=== PATIENT | male | born 1990 | race Caucasian/White ===

== ENCOUNTER 2025-05-18 04:59 | Emergency (ER) | payer SELFPAY ==
[~2025-05-18] VITALS: Ht 170.2 cm; Wt 72.6 kg
[2025-05-18] MEDS ORDERED: LORAZEPAM 2 MG/1 ML VIAL ONE (05:52)
[2025-05-18] MEDS: LORAZEPAM 2 MG/1 ML VIAL IV ONE (05:56)
[2025-05-18 06:09] LABS: PLATELET COUNT (AUTO) 442 K/uL (152-348); RED BLOOD CELL COUNT(AUTO) 5.67 MIL/uL (4.06-5.63); RED CELL DISTRIBUTION WIDTH 20.6 % (12.1-16.2); WHITE BLOOD COUNT (AUTO) 7.5 K/uL (3.6-10.2)
[2025-05-18 06:17] LABS: CREATININE 0.8 mg/dL (0.6-1.3); SODIUM SERUM 143 mmol/L (136-145); UREA NITROGEN, BLOOD 18 mg/dL (7-18)
[2025-05-18 06:29] LABS: ASPARTATE AMINOTRANSFERASE 17 U/L (15-37); TOTAL PROTEIN, SERUM 7.5 g/dL (6.4-8.2)
[2025-05-18] MEDS ORDERED: POTASSIUM CHLORIDE 20 MEQ TAB.PRT.SR ONE (06:53)
[2025-05-18] MEDS: POTASSIUM CHLORIDE 20 MEQ TAB.PRT.SR PO ONE (06:59)
[2025-05-18 08:12] LABS: *BILIRUBIN,URIN NEGATIVE (NEGATIVE); *CLARITY,URINE CLEAR (CLEAR); *COLOR,URINE YELLOW (YELLOW); *KETONES,URINE TRACE (NEGATIVE); *PROTEIN,URINE NEGATIVE (NEGATIVE); *UROBILINOGEN,URINE 0.2 E.U./dl (NORMAL); LEUKOCYTE ESTERASE ,URINE NEGATIVE (NEGATIVE); NITRITE, URINE NEGATIVE (NEGATIVE); UGLUCOSE NEGATIVE (NEGATIVE)
[2025-05-18 08:18] LABS: *BLOOD, URINE TRACE (NEGATIVE)
[2025-05-18 08:33] LABS: *AMPHETAMINE, URINE POSITIVE (NEGATIVE); *BARBITURATE, URINE NEGATIVE (NEGATIVE); *BENZODIAZEPINE, URINE NEGATIVE (NEGATIVE); *CANNABINOID, URINE POSITIVE (NEGATIVE); *COCCAINE, URINE NEGATIVE (NEGATIVE); *OPIATE, URINE NEGATIVE (NEGATIVE); *PHENCYCLIDINE SCREEN,URINE NEGATIVE (NEGATIVE); FENTANYL, URINE NEGATIVE (NEGATIVE)
[2025-05-18 10:00] VITALS: BP 139/90
[2025-05-18 11:02] VITALS: BP 139/90; TEMP 98.4; O2SAT 97
== END 2025-05-18 11:03 | disposition home or self-care (01) ==
LOC: ER 05:10
DX: R07.89 Other chest pain (principal); T50.905A Adverse effect of unspecified drugs, medicaments and biological substances, initial encounter; D50.9 Iron deficiency anemia, unspecified; E87.6 Hypokalemia; F15.90 Other stimulant use, unspecified, uncomplicated; F17.210 Nicotine dependence, cigarettes, uncomplicated; F41.9 Anxiety disorder, unspecified; Z79.899 Other long term (current) drug therapy; Z60.2 Problems related to living alone; Y92.524 Gas station as the place of occurrence of the external cause; R55 Syncope and collapse; R06.02 Shortness of breath
CPT/HCPCS: 99285; 96374; 70450; 71045; 80076; 80048; 83880; 83690; 83735; 85025; 85730; 84484 ×2; 36415; 93005; 80307; 81001; J2060; A4606; A4663